=== PATIENT | female | born 1940 | race Caucasian/White ===

== ENCOUNTER 2023-12-03 05:45 | Inpatient (IN) | payer BC ==
[~2023-12-03] VITALS: Ht 149.9 cm; Wt 66.2 kg
[2023-12-03] MEDS ORDERED: CELECOXIB 100 MG CAPSULE ONE (06:18)
[2023-12-03] MEDS ORDERED: GABAPENTIN 300 MG CAPSULE ONE (06:19)
[2023-12-03] MEDS ORDERED: OXYCODONE/ACETAMINOPHEN 5-325 TABLET ONE (06:19)
[2023-12-03] MEDS ORDERED: SCOPOLAMINE HYDROBROMIDE 1 MG PATCH .72 H (TRANSDERM-SCOP) TD ONE (06:19)
[2023-12-03] MEDS ORDERED: CEFAZOLIN SOD 2 GM in D5W 50 ML IV ONE (06:30)
[2023-12-03] MEDS: GABAPENTIN 300 MG CAPSULE PO ONE (06:30)
[2023-12-03] MEDS: SCOPOLAMINE HYDROBROMIDE 1 MG PATCH .72 H (TRANSDERM-SCOP) TD ONE (06:30)
[2023-12-03] MEDS: CELECOXIB 100 MG CAPSULE PO ONE (06:30)
[2023-12-03] MEDS ORDERED: BUPIVACAINE /PF 0.25% 30 ML VIAL INJ ONE (07:25)
[2023-12-03] MEDS ORDERED: DIPHENHYDRAMINE HCL 25 MG CAPSULE PO PRN (07:30)
[2023-12-03] MEDS ORDERED: LACTULOSE 20 GM/30 ML UDC PO PRN (07:30)
[2023-12-03] MEDS ORDERED: NALOXONE HCL 0.4 MG/ML AMP (NARCAN) IVP PRN ×3 (07:30)
[2023-12-03] MEDS ORDERED: METOCLOPRAMIDE HCL 10 MG/2 ML VIAL IVP PRN (07:30)
[2023-12-03] MEDS ORDERED: BISACODYL 10 MG/SUPPOSITORY RC PRN (07:30)
[2023-12-03] MEDS: OXYCODONE/ACETAMINOPHEN 5-325 TABLET PO ONE (07:31)
[2023-12-03] MEDS ORDERED: HYDROmorphone 1 MG/ML INJ. CARTRIDGE IVP PRN ×4 (08:15→11:00)
[2023-12-03] MEDS ORDERED: MEPERIDINE HCL/PF 25 MG/ML DISP.SYRIN IVP PRN (08:15)
[2023-12-03] MEDS ORDERED: LR 1,000 ML IV SCH (09:00)
[2023-12-03] MEDS ORDERED: traMADol HCL HCL 50 MG TABLET (ULTRAM) PO PRN (11:00)
[2023-12-03] MEDS ORDERED: oxyCODONE HCL 5 MG TABLET PO PRN ×2 (11:00)
[2023-12-03] MEDS ORDERED: LORATADINE 10 MG TABLET PO PRN (11:00)
[2023-12-03] MEDS: ONDANSETRON HCL 4 MG/2 ML VIAL IVP PRN (11:10)
[2023-12-03] MEDS ORDERED: ceFAZolin SODIUM 2 GM in D5W 50 ML IV SCH (11:15)
[2023-12-03 11:35] VITALS: BP_SYST 163; PULSE 90; RESP 12; TEMP 98.5; O2SAT 96
[2023-12-03] MEDS ORDERED: ONDANSETRON HCL 4 MG/2 ML VIAL IVP PRN (11:45)
[2023-12-03] MEDS ORDERED: HYDROmorphone 1 MG/ML INJ. CARTRIDGE ONE (12:08)
[2023-12-03] MEDS: HYDROmorphone 1 MG/ML INJ. CARTRIDGE IVP PRN (12:10)
[2023-12-03] MEDS: ONDANSETRON HCL 4 MG/2 ML VIAL ONE (12:26)
[2023-12-03] MEDS ORDERED: ONDANSETRON HCL 4 MG/2 ML VIAL ONE (12:26)
[2023-12-03] MEDS: hydrALAZINE HCL 20 MG/ML VIAL ONE (12:52)
[2023-12-03] MEDS: hydrALAZINE HCL 20 MG/ML VIAL IVP ONE (13:06)
[2023-12-03] MEDS ORDERED: ACETAMINOPHEN 500 MG TABLET PO SCH (14:00)
[2023-12-03] MEDS ORDERED: KETOROLAC TROMETHAMINE 10 MG TABLET (TORADOL) PO SCH (14:00)
[2023-12-03] MEDS: TAMSULOSIN HCL 0.4 MG CAP PO ONE (14:08)
[2023-12-03] MEDS ORDERED: SENNOSIDES/DOCUSATE SODIUM 1 TAB TABLET(SENOKOT-S) PO SCH (21:00)
[2023-12-04] MEDS ORDERED: ASPIRIN 81 MG TAB.CHEW PO SCH (09:00)
[2023-12-04] MEDS ORDERED: CELECOXIB 200 MG CAPSULE PO SCH (11:00)
== END 2023-12-03 16:00 | disposition home or self-care (01) | DRG 470 ==
LOC: SMU 05:45
PROVIDERS: ADMIT Student in an Organized Health Care Education/Training Program; ATTEND Student in an Organized Health Care Education/Training Program
PROC: 0SRC0J9 Replacement of Right Knee Joint with Synthetic Substitute, Cemented, Open Approach (ICD-10-PCS; principal; 2023-12-03 07:30)
DX: M17.11 Unilateral primary osteoarthritis, right knee (principal)
CPT/HCPCS: 71045; 73560; 82948; 87081; 88305; 88311; 97110-GP; 97116-GP; 97530-GP; C1776; J0360; J0690; J0696; J1170; J2405; J3010; J3370; J3465; J3490; J7060; J7120